=== PATIENT | male | born 1980 | race Caucasian/White ===

== ENCOUNTER 2017-04-01 17:00 | Emergency (ER) | payer OTHER ==
[~2017-04-01] VITALS: Ht 177.8 cm; Wt 97.5 kg
[2017-04-01 17:01] VITALS: Ht 177.8 cm; Wt 97.5 kg
--- NOTE | 2017-04-01 18:44 | ERD ---
ER Documentation Chief Complaint Date/Time DATE: 04/01/17 TIME: 18:43 Chief Complaint 10/10 r. knee pain x 1 day HPI 36-year-old male otherwise healthy presents with right anteromedial knee pain after hyperextension injury [place]. He complains of slight popping noise, swelling medially. Pain is worse with weightbearing, minimal pain noted at rest. He has no weakness. ROS All systems reviewed and are negative except as per history of present illness. Medications Home Meds Active Scripts Ibuprofen* (Motrin*) 600 Mg Tab, 600 MG PO Q6, #30 TAB Prov:ELOY IVY PA-C 04/01/17 Allergies Allergies: Coded Allergies: No Known Allergy (Unverified , 04/01/17) PMhx/Soc History of Surgery: No Anesthesia Reaction: No Hx Neurological Disorder: No Hx Respiratory Disorders: No Hx Cardiac Disorders: No Hx Psychiatric Problems: No Hx Miscellaneous Medical Probl: Yes (CHRONIC BACK PAIN ) Hx Alcohol Use: Yes Hx Substance Use: No Hx Tobacco Use: Yes (1 CIG /DAY ) Smoking Status: Current every day smoker Physical Exam Vitals Vital Signs Date Time Temp Pulse Resp B/P Pulse Ox O2 Delivery O2 Flow Rate FiO2 04/01/17 17:01 98.6 117 18 166/97 96 Physical Exam General: Well-developed, well-nourished. The patient appears in no acute distress. HEENT: Head is normocephalic, atraumatic. No scleral icterus. Neck: Supple. Nontender. Lungs: Clear to auscultation. Normal air movement. Heart: Regular rate and rhythm. S1 and S2 are normal. No murmurs, gallops, or rubs. Abdomen: Nondistended. Extremities: Right knee has anteromedial pain, there is no joint line tenderness , no bony deformities, he is able to extend the knee, and has full range of motion with flexion. There is no warmth or erythema. No joint laxity. Neurologic: Alert and oriented 3. No focal deficits. Normal speech and gait. Skin: Normal turgor. No rash or lesions. Results 24 hrs Current Medications Medications (Trade) Dose Ordered Sig/Arun Route PRN Reason Start Time Stop Time Status Last Admin Dose Admin Ibuprofen (Motrin) 600 mg ONCE ONCE PO 04/01/17 19:00 04/01/17 19:01 DC 04/01/17 19:04 DIAGNOSTIC IMAGING REPORT Patient: CORIE CARROLL : 1980 Age: 36 Sex: M MR #: [id number] DOS: 04/01/17 1841 Ordering MD: ELOY IVY PA-C Location: [facility] Room/Bed: PROCEDURE: X-ray right knee CLINICAL INDICATION: Right knee injury TECHNIQUE: 3 views right knee COMPARISON: None FINDINGS: No acute fracture or dislocation. Small amount of joint fluid is nonspecific. Soft tissues are otherwise unremarkable. IMPRESSION: No acute fracture. RPTAT: [facility] Physician Dawood Date Time Electronically viewed and signed by Physician Dawood on 04/01/2017 19:22 RS/ CC: ELOY IVY PA-C Procedures/MDM ED course: Patient was given ibuprofen for pain. Right knee was splinted with a knee immobilizer, and he was given crutches to be weightbearing as tolerated. Splint Assessment: Neurovascularly intact post splint placement with good fit. MDM: 36-year-old male comes with anteromedial knee pain from hyperextension injury, presents with a right knee sprain. There is no evidence of joint laxity , no joint line tenderness, and x-rays are unremarkable. He will be given instructions to rest the area, ice, take ibuprofen. He was asked to follow-up with orthopedics if there is no improvement in 1 week. Departure Diagnosis: Primary Impression: Knee injury Condition: Good ELOY IVY PA-C Apr 01, 2017 18:44
[2017-04-01] MEDS ORDERED: IBUPROFEN 600 MG TAB PO ONE (19:00)
--- NOTE | 2017-04-01 19:22 | RADRPT ---
PROCEDURE: X-ray right knee CLINICAL INDICATION: Right knee injury TECHNIQUE: 3 views right knee COMPARISON: None FINDINGS: No acute fracture or dislocation. Small amount of joint fluid is nonspecific. Soft tissues are oth erwise unremarkable. IMPRESSION: No acute fracture. RPTAT: [facility] Physician Dawood Date Time Electronically viewed and signed by Emiliano Christine Physician on 04/01/2017 19:22 RS/
[2017-04-01] MEDS ORDERED: IBUP-1542 PO (19:35)
[2017-04-01 19:47] VITALS: BP 133/88; PULSE 79; RESP 18; TEMP 98.5
== END 2017-04-01 20:00 | disposition home or self-care (01) ==
LOC: FTE 17:00
DX: S89.91XA Unspecified injury of right lower leg, initial encounter (principal); F17.210 Nicotine dependence, cigarettes, uncomplicated; X50.9XXA Other and unspecified overexertion or strenuous movements or postures, initial encounter; Y92.9 Unspecified place or not applicable
CPT/HCPCS: 73562